=== PATIENT | female | born 1965 | race Caucasian/White ===

== ENCOUNTER → 2016-07-21 | Outpatient (CLI) | payer OTHER | END | disposition home or self-care (01) | LOC: PF 10:26 | PROVIDERS: ATTEND Internal Medicine Rheumatology | DX: M34.9 Systemic sclerosis, unspecified (principal); R06.02 Shortness of breath | CPT/HCPCS: 94060; 94729 ==

== ENCOUNTER → 2016-09-13 | Outpatient (CLI) | payer OTHER | END | disposition home or self-care (01) | LOC: PF 08:47 | PROVIDERS: ATTEND Internal Medicine Rheumatology | DX: M34.9 Systemic sclerosis, unspecified (principal) | CPT/HCPCS: 94010; 94729 ==

== ENCOUNTER → 2016-11-06 | Outpatient (CLI) | payer OTHER | END | disposition home or self-care (01) | LOC: PF 09:53 | PROVIDERS: ATTEND Internal Medicine Rheumatology | DX: M34.9 Systemic sclerosis, unspecified (principal) | CPT/HCPCS: 94010; 94729 ==

== ENCOUNTER → 2017-01-01 | Outpatient (CLI) | payer OTHER | END | disposition home or self-care (01) | LOC: PF 11:03 | PROVIDERS: ATTEND Internal Medicine Rheumatology | DX: M34.9 Systemic sclerosis, unspecified (principal) | CPT/HCPCS: 94010; 94729 ==

== ENCOUNTER → 2017-06-29 | Outpatient (CLI) | payer OTHER | END | disposition home or self-care (01) | LOC: RT 10:01 | PROVIDERS: ATTEND Internal Medicine Rheumatology | DX: M34.89 Other systemic sclerosis (principal) | CPT/HCPCS: 94010; 94729 ==

== ENCOUNTER → 2017-10-08 | Outpatient (CLI) | payer OTHER ==
[~2017-10-08] MED LIST: ALBUTEROL (0.083%) 2.5MG/3ML NEB ONE
== END | disposition home or self-care (01) ==
LOC: PF 09:50
PROVIDERS: ATTEND Internal Medicine Rheumatology
DX: M34.89 Other systemic sclerosis (principal)
CPT/HCPCS: 94060; 94729; J7611

== ENCOUNTER → 2018-01-28 | Outpatient (CLI) | payer OTHER | END | disposition home or self-care (01) | LOC: PF 09:58 | PROVIDERS: ATTEND Internal Medicine Rheumatology | DX: M34.9 Systemic sclerosis, unspecified (principal) | CPT/HCPCS: 94010; 94729 ==

== ENCOUNTER → 2018-09-23 | Outpatient (CLI) | payer OTHER | END | disposition home or self-care (01) | LOC: PF 09:59 | PROVIDERS: ATTEND Internal Medicine Rheumatology | DX: M34.9 Systemic sclerosis, unspecified (principal) | CPT/HCPCS: 94060; 94729 ==

== ENCOUNTER → 2019-01-20 | Outpatient (CLI) | payer OTHER | END | disposition home or self-care (01) | LOC: PF 09:59 | PROVIDERS: ATTEND Internal Medicine Rheumatology | DX: M34.9 Systemic sclerosis, unspecified (principal) | CPT/HCPCS: 94010; 94727; 94729 ==

== ENCOUNTER → 2019-04-21 | Outpatient (CLI) | payer OTHER | END | disposition home or self-care (01) | LOC: PF 10:01 | PROVIDERS: ATTEND Internal Medicine Rheumatology | DX: J98.8 Other specified respiratory disorders (principal) | CPT/HCPCS: 94010; 94729 ==

== ENCOUNTER → 2019-12-02 | Outpatient (CLI) | payer OTHER | END | disposition home or self-care (01) | LOC: PF 10:54 | PROVIDERS: ATTEND Internal Medicine Rheumatology | DX: M34.9 Systemic sclerosis, unspecified (principal) | CPT/HCPCS: 94010; 94727; 94729 ==